=== PATIENT | male | born 1975 | race Caucasian/White ===

== ENCOUNTER 2020-05-27 20:00 | Emergency (ER) | payer OTHER ==
[~2020-05-27] VITALS: Ht 175.3 cm; Wt 111.1 kg
[2020-05-27 20:00] VITALS: BP_SYST 137
[2020-05-27 21:05] LABS: BLOOD, URINE 1+ (NEGATIVE); CLARITY/URINE CLEAR (CLEAR); COLOR,URINE YELLOW (YELLOW); GLUCOSE,URINE NEGATIVE (NEGATIVE); KETONES,URINE 3+ (NEGATIVE); LEUKOCYTE ESTERASE ,URINE NEGATIVE (NEGATIVE); NITRITE, URINE NEGATIVE (NEGATIVE); PROTEIN URINE TRACE (NEGATIVE); UROBILINOGEN,URINE 0.2 (0.2-1.0)
[2020-05-27 21:22] LABS: BILIRUBIN,URINE NEGATIVE (NEGATIVE)
[2020-05-27 21:25] LABS: BACTERIA,URINE FEW /HPF (None Seen); MUCUS,URINE 1+ /LPF (None Seen); RBC,URINE NONE SEEN /HPF (0-3); WBC,URINE 0-3 /HPF (0-3)
--- NOTE | 2020-05-27 21:39 | NUR ---
Patient to ER bed CH2 to gown for evaluation. Side rails up.
--- NOTE | 2020-05-27 21:40 | NUR ---
PT C/O OF LEFT SIDE FLANK PAIN 06/10 STARTED AT 5AM. PT WENT TO URGENT CARE AND WAS TOLD IT WAS A KIDNEY STONE. PT TAKEN HYDROCODONE 5-325MG AT 12PM AND 6PM, AND TOOK FLOMAX AT 12PM. PT STATES HE FEELS NAUSEOUS.
--- NOTE | 2020-05-27 21:43 | NUR ---
ER Dr. LEONG at bedside examining patient.
--- NOTE | 2020-05-27 21:43 | NUR ---
Alina bowers in [facility] - 05/27/20 at 2148 by EL LUÍS Feng at bedside examining patient.
[2020-05-27] MEDS ORDERED: NACL 0.9% 1,000 ML IV ONE ×2 (21:45→23:15)
[2020-05-27] MEDS ORDERED: KETOROLAC TROMETHAMINE 30 MG VIAL IVP ONE (21:45)
--- NOTE | 2020-05-27 21:56 | NUR ---
# 20 gauge angiocath placed to RAC. Use of asceptic technique. Opsite placed over site. Blood return noted. Blood for lab drawn from site. Flushed with 10 cc of normal saline. No evidence of infiltration noted. Patient tolerated well.
[2020-05-27 22:07] LABS: BASOPHILS % (AUTO) 0.3 % (0.0-2.0); EOSINOPHILS % (AUTO) 0.1 % (0.0-4.0); HEMATOCRIT 49.5 % (36-54); HEMOGLOBIN 16.9 g/dL (14.0-18.0); LYMPHOCYTES # (AUTO) 1.2 K/uL (1.0-5.5); LYMPHOCYTES % (AUTO) 8.1 % (20.5-51.5); MEAN CORPUSCULAR HEMOGLOBIN 31 pg (27-31); MEAN CORPUSCULAR HGB CONC 34 % (32-36); MEAN CORPUSCULAR VOLUME 89 fL (79.0-98.0); MONOCYTES # (AUTO) 1.4 K/uL (0.0-1.0); NEUTROPHILS # (AUTO) 11.8 K/uL (1.8-7.7); NEUTROPHILS % (AUTO) 81.5 % (40.0-70.0); PLATELET COUNT (AUTO) 258 K/uL (130-430); RED BLOOD CELL COUNT(AUTO) 5.55 MIL/uL (4.2-6.2); RED CELL DISTRIBUTION WIDTH 13.1 % (9.0-15.0); WHITE BLOOD COUNT (AUTO) 14.4 K/uL (4.8-10.8)
--- NOTE | 2020-05-27 22:10 | NUR ---
Patient transported to radiology via wheelchair, accompanied by TECH.
[2020-05-27 22:14] LABS: CALCIUM 9.1 mg/dL (8.4-11.0); CREATININE 1.22 mg/dL (0.55-1.30)
--- NOTE | 2020-05-27 22:18 | NUR ---
PT BACK FROM RADIOLOGY
[2020-05-27 22:19] LABS: ALBUMIN 4.4 g/dL (3.4-4.8); TOTAL BILIRUBIN 0.8 mg/dL (0.0-1.0)
--- NOTE | 2020-05-27 23:09 | NUR ---
SECOND LITER OF NS STARTED AT 999MLS/HR PER MD ORDER. PT PAIN 01/11.
[2020-05-28 00:10] VITALS: BP_SYST 141
--- NOTE | 2020-05-28 00:10 | NUR ---
Patient given written and verbal discharge instructions and verbalizes understanding. ER MD discussed with patient the results and treatment provided. Patient in stable condition. ID arm band removed. IV catheter removed intact and dressing applied, no active bleeding. Rx of NAPROSYN given. Patient educated on pain management and to follow up with PMD. Pain Scale 1/10. Opportunity for questions provided and answered. Medication side effect fact sheet provided.
== END 2020-05-28 00:10 | disposition home or self-care (01) ==
LOC: SED 20:00
DX: N20.0 Calculus of kidney (principal)
CPT/HCPCS: 36415; 74176; 80053; 81000; 85025; 96374; 99284; J1885; J7030